=== PATIENT | male | born 1985 | race Caucasian/White ===

== ENCOUNTER 2019-09-09 08:14 | Emergency (ER) | payer SELFPAY ==
--- NOTE | ~2019-09-09 | XR_ITS ---
EXAMINATION: XR chest 1V portable 09/09/2019 08:43 INDICATION: Shortness of breath. Intermittent chest pain, nausea and abdomen pain. PROCEDURE: AP portable chest COMPARISON: 06/30/2017 FINDINGS: The lungs are clear. The cardiomediastinal silhouette is within normal limits. There are no pleural effusions. There is no pneumothorax suspected. IMPRESSION: 1: NO ACUTE CARDIOPULMONARY DISEASE. Reviewed, dictated and finalized at location A.
--- NOTE | ~2019-09-09 | CT_ITS ---
EXAMINATION: CT brain wo con DATE: 09/09/2019 10:49 INDICATION: Headache. TECHNIQUE: Computed tomography (CT) of the head was performed without intravenous contrast. The mA wa s adjusted according to patient size. Iterative reconstruction technique was employed. The dose-lengt h product was 605.33 mGy-cm. COMPARISON: None FINDINGS: There is no intracranial hemorrhage, acute infarction, or abnormal intracranial mass lesion . The ventricles are normal in size. There is mild mucosal thickening in the paranasal sinuses. The m astoid air cells are normal. The orbits are normal. IMPRESSION: 1. Normal brain. Reviewed, dictated and finalized at location A. IMPRESSION: 1. Normal brain.
--- NOTE | ~2019-09-09 | CT_ITS ---
EXAMINATION: CT abdomen pelvis w con DATE: 09/09/2019 10:48 INDICATION: Abdomen pain. TECHNIQUE: Computed tomography (CT) of the abdomen and pelvis was performed with 100 cc Omnipaque 350 intravenous contrast. The dose-length product was 407.93 mGy-cm. Automated exposure control and iter ative reconstruction technique were employed. COMPARISON: CT dated 10/15/2018 FINDINGS: Heart size is normal. No significant pleural or pericardial effusion. No significant vascular abnormality. No lymphadenopathy. The liver, spleen, pancreas, adrenal glands and kidneys are unremarkable. Colonic diverticulosis without evidence for diverticulitis. No free air or free fluid. No acute osseous abnormality. Gallbladder is present. There are changes of appendecto my.0 IMPRESSION: 1. No acute abdominal abnormality. Reviewed, dictated and finalized at location A.
--- NOTE | 2019-09-09 08:30 | ECG_ITS ---
Measurements Intervals [place] Rate: 79 P: 61 TX: 153 QRS: 49 QRSD: 95 T: 43 QT: 368 QTc: 422 Interpretive Statements SINUS RHYTHM WITH SINUS ARRHYTHMIA BASELINE ARTIFACT- I, III NORMAL ECG Electronically Signed On 09-09-2019 8:42:05 CDT by Garth Casiano D.O.
--- NOTE | 2019-09-09 08:33 | ED.GENADULT ---
HPI - General Adult General Chief complaint: Abdominal Pain Stated complaint: Multiple Complaints Time Seen by Provider: 09/09/19 08:21 Source: RN notes reviewed History of Present Illness HPI narrative: Patient presents to emergency department from home for multiple complaints. Patient states he has been having intermittent headache, numbness and tingling of the bilateral hands and feet dyspnea and abdominal pain in the left upper quadrant. Patient states that all the symptoms have been occurring over the past several weeks. Patient states that pain in the left upper abdomen is worse with eating and radiates around into his back. States that numbness and tingling and headache occur at the same time. He states he has been under increased stress and anxiety since the beginning of the pandemic. He states that his symptoms improve when he is at home and are worse when he is at work. He denies any fevers or chills vision changes chest pain vomiting diarrhea weakness of any of the extremities or any other symptoms at this time Related Data Allergies Allergy/AdvReac Type Severity Reaction Status Date / Time No Known Allergies Allergy Verified 09/09/19 08:41 Review of Systems Review of Systems: Narrative: Gen.: Denies fevers or chills Eyes: Denies eye pain or visual change ENT: Denies congestion Respiratory: Reports shortness of breath, denies cough CV: Denies chest pain or palpitations GI: Reports abdominal pain denies vomiting or diarrhea Musculoskeletal: Denies back pain or muscle pain Neuro: Denies denies weakness, reports numbness and tingling of the bilateral hands and feet Skin: Denies rash Except as documented, all other systems reviewed and negative [facility] Past Medical History Medical History (Updated 09/09/19 @ 13:18 by Panda López DO) Patient denies significant medical history Social History Social History (Updated 09/09/19 @ 08:35 by Panda López DO) Smoking packs per day: 0.25 Smoking cigarettes per day: 5.0 Gender identity (if verbalized by the patient): Male Exam Narrative: Exam Narrative: APPEARANCE: No acute distress, nontoxic, resting in bed HEENT: Normocephalic, atraumatic, OMM, TMs clear bilaterally EYES: PERRL, EOMI NECK: Supple, nontender, full range of motion without pain, no meningismus RESPIRATORY: No respiratory distress, clear to auscultation bilaterally with no rhonchi wheezing or rales CARDIOVASCULAR: RRR s murmur ABDOMINAL: Soft, nontender, nondistended MUSCULOSKELETAL: Moves all extremities. No clubbing, cyanosis or edema. NEURO: A and O ?3, following commands, speech normal, no facial droop,muscle strength 5 out of 5 bilateral upper and lower extremities SKIN:: Warm, dry. Normal Color PSYCHIATRIC: Anxious in appearance Course Course Emergency Course: Patient states he is feeling better following medication. Anxiety has improved Patient states that they are feeling much better at this time. States abdominal pain has resolved. Repeat abdominal exam shows the patient's abdomen to be soft and nontender. Discussed with patient results of workup and diagnosis. Discussed need for follow-up with primary care physician, reasons to return to the emergency department in proper use of medication. Patient understands and agrees to current treatment plan Vital Signs Vital signs: Vital Signs Temperature 97.7 F 09/09/19 08:37 Pulse Rate 105 H 09/09/19 08:37 Respiratory Rate 19 09/09/19 08:37 Blood Pressure 151/89 H 09/09/19 08:37 Pulse Oximetry 96 09/09/19 08:37 Temperature 97.7 F 09/09/19 08:37 Pulse Rate 88 09/09/19 10:10 Respiratory Rate 16 09/09/19 10:10 Blood Pressure 139/81 09/09/19 10:10 Pulse Oximetry 100 09/09/19 10:10 Medical Decision Making MDM Narrative Medical decision making narrative: Patient's abdomen is soft without significant pain or signs of surgical abdomen on serial exams. Lab and x-ray evaluations are reviewed and patient i
[2019-09-09 08:37] VITALS: BP 151/89; PULSE 105; RESP 19; TEMP 36.5; O2SAT 96
[2019-09-09 08:44] LABS: Basophils Absolute Auto 0.1 K/mm3 (0.0-0.1); Basophils Percent Auto 0.9 % (0.2-1.2); Eosinophils Absolute Auto 0.2 K/mm3 (0-0.3); Eosinophils Percent Auto 2.4 % (0-4.4); Hematocrit 48.5 % (42.0-52.0); Hemoglobin 16.3 g/dL (14.0-18.0); Immature Granulocyte Absolute 0.02 K/mm3 (0.00-0.031); Immature Granulocyte Percent A 0.3 % (0-0.5); Lymphocytes Absolute Auto 2.21 K/mm3 (0.9-3.2); Lymphocytes Percent Auto 27.8 % (18.3-44.2); Mean Corpuscular HGB Conc 33.6 g/dl (32-36); Mean Corpuscular Hemoglobin 31.4 pg (26-34); Mean Corpuscular Volume 93.4 fl (80-100); Mean Platelet Volume 11.3 fl (7.4-10.4); Monocytes Absolute Auto 0.6 K/mm3 (0.1-0.6); Monocytes Percent Auto 6.9 % (2.6-8.5); Neutrophils Absolute Auto 4.9 K/mm3 (1.3-6.7); Neutrophils Percent Auto 61.7 % (45.5-73.1); Platelet Count Result 229 k/mm3 (150-375); Red Blood Count 5.19 M/mm3 (4.6-6.20); Red Cell Distribution Width 11.8 % (11.5-14.5)
[2019-09-09 08:54] LABS: Add Urine Microscopic? YES; Appearance Urine Clear (Clear); Bacteria Urine Trace /hpf; Bilirubin Urine Negative (Negative); Blood Urine Negative (Negative); Color Urine Yellow (Yellow); Glucose Urine UA Negative (Negative); Ketones Urine Negative (Negative); Leukocyte Esterase Ur Negative LEU/UL (Negative); Mucus Urine Few /lpf; Nitrate Urine Negative (Negative); Protein Urine 1+ mg/dL (Negative); RBC Urine 0-2 /hpf (0-2); Specific Grav Ur 1.027 (1.001-1.035); Urobilinogen Urine Negative mg/dL (<2.0); WBC Urine 0-3 /hpf
[2019-09-09 08:55] LABS: INR 0.9; Prothrombin Time 11.9 Seconds (11.1-14.7)
[2019-09-09 08:56] LABS: Alanine Aminotransferase 44 U/L (4-50); Albumin Level 4.9 g/dL (3.5-5.1); Alkaline Phosphatase 93 U/L (38-126); Aspartate Amino Transferase 30 U/L (17-59); Bilirubin,Total 0.7 mg/dL (0.2-1.3); Blood Urea Nitrogen 12 mg/dL (9-20); Calcium 9.7 mg/dL (8.4-10.2); Carbon Dioxide 27 mmol/L (22-30); Chloride 103 mmol/L (98-107); Estimated CRCL calculation 101 ml/min; Estimated Glomerular Filt Rate > 60; Glucose 131 mg/dL (75-110); Lipase 70 U/L (23-300); Partial Thromboplastin Time 29.3 SECONDS (22.3-36.8); Potassium 3.4 mmol/L (3.4-5.0); Sodium 138 mmol/L (137-145)
[2019-09-09] MEDS: LORAZEPAM INJ 2 MG/ML VIAL 0.5 MG IV PUSH (08:58)
[2019-09-09] MEDS: SODIUM CHLORIDE 0.9% IV 1,000 ML 999 ML IV CONT ×2 (08:58→10:16)
[2019-09-09 09:08] LABS: Troponin I < 0.012 ng/mL (0.000-0.034)
[2019-09-09 09:32] VITALS: BP 127/82; PULSE 74; RESP 21; O2SAT 99
[2019-09-09 10:10] VITALS: BP 139/81; PULSE 88; RESP 16; O2SAT 100
[2019-09-09] MEDS: FAMOTIDINE 20 MG/2 ML VIAL IV PUSH (10:16)
[2019-09-09] MEDS: KETOROLAC 30 MG/ML VIAL (*BKC) IV PUSH (11:46)
[2019-09-09 13:36] VITALS: BP 120/78; PULSE 63; RESP 14; O2SAT 97
== END 2019-09-09 13:40 | disposition home or self-care (01) ==
PROVIDERS: Emergency Provider Emergency Medicine
DX: F41.9 Anxiety disorder, unspecified (principal); R10.9 Unspecified abdominal pain; F17.210 Nicotine dependence, cigarettes, uncomplicated
CPT/HCPCS: 36415; 70450; 71045; 74177; 80053; 81001; 83690; 84484; 85025; 85610; 85730; 93005; 96361; 96374; 96375; 99284; A9270; J1885; J2060; J7030; Q9967

== ENCOUNTER 2019-09-26 10:38 | Emergency (ER) | payer SELFPAY ==
[2019-09-26 10:39] VITALS: BP 138/89; PULSE 98; RESP 18; TEMP 37.4; O2SAT 98
[2019-09-26 11:06] LABS: Basophils Absolute Auto 0.1 K/mm3 (0.0-0.1); Basophils Percent Auto 0.6 % (0.2-1.2); Eosinophils Absolute Auto 0.2 K/mm3 (0-0.3); Eosinophils Percent Auto 1.8 % (0-4.4); Immature Granulocyte Absolute 0.02 K/mm3 (0.00-0.031); Immature Granulocyte Percent A 0.2 % (0-0.5); Lymphocytes Absolute Auto 2.84 K/mm3 (0.9-3.2); Lymphocytes Percent Auto 29.9 % (18.3-44.2); Mean Corpuscular Hemoglobin 31.8 pg (26-34); Mean Corpuscular Volume 93.6 fl (80-100); Mean Platelet Volume 11.3 fl (7.4-10.4); Monocytes Absolute Auto 0.6 K/mm3 (0.1-0.6); Monocytes Percent Auto 6.1 % (2.6-8.5); Neutrophils Absolute Auto 5.8 K/mm3 (1.3-6.7); Neutrophils Percent Auto 61.4 % (45.5-73.1); Platelet Count Result 264 k/mm3 (150-375); Red Blood Count 5.34 M/mm3 (4.6-6.20); White Blood Count 9.5 K/mm3 (4.5-10.0)
[2019-09-26 11:09] LABS: Add Urine Microscopic? NO; Appearance Urine Clear (Clear); Bilirubin Urine Negative (Negative); Blood Urine Negative (Negative); Color Urine Straw (Yellow); Glucose Urine UA Negative (Negative); Ketones Urine Negative (Negative); Leukocyte Esterase Ur Negative LEU/UL (Negative); Nitrate Urine Negative (Negative); Protein Urine Negative (Negative); Specific Grav Ur 1.006 (1.001-1.035); Urobilinogen Urine Negative mg/dL (<2.0)
--- NOTE | 2019-09-26 11:21 | ED.ABDPAIN ---
HPI - Abdominal Pain General Chief Complaint: Abdominal Pain <Yoshi Mix PA-C - Last Filed: 09/26/19 13:00> Stated Complaint: ULCER - ABD PAIN <JAMES De La Rosa Last Filed: 09/26/19 13:00> Time Seen by Provider: 09/26/19 10:58 <JAMES De La Rosa Last Filed: 09/26/19 13:00> Source: patient <JAMES De La Rosa Last Filed: 09/26/19 13:00> Mode of arrival: ambulatory <Yoshi Mix PA-C - Last Filed: 09/26/19 13:00> Limitations: no limitations <JAMES De La Rosa Last Filed: 09/26/19 13:00> History of Present Illness HPI narrative: Patient is a 33-year-old male who presents to emergency department for evaluation of abdominal discomfort in the epigastrium that radiates up into the chest is been present now for a month off and on has not taken anything for his symptoms notes that he had been taking ibuprofen and was seen in the emergency department in the recent past for rectal bleeding but did not follow-up as instructed. Patient has not taken anything for his symptoms. Denies radiation of pain. Pain is worse with p.o. intake <JAMES De La Rosa Last Filed: 09/26/19 13:00> Related Data Home Medications: Home Medications Medication Instructions Recorded Confirmed famotidine 20 mg PO 09/26/19 <Yoshi Mix PA-C - Last Filed: 09/26/19 13:00> Allergies/Adverse Reactions: Allergies Allergy/AdvReac Type Severity Reaction Status Date / Time No Known Allergies Allergy Unverified 09/26/19 10:43 <Yoshi Mix PA-C - Last Filed: 09/26/19 13:00> Review of Systems Review of Systems: All systems reviewed & are unremarkable except as noted in HPI and below <Yoshi Mix PA-C - Last Filed: 09/26/19 13:00> [facility] Social History Social History: Social History (Updated 09/26/19 @ 11:54 by Yoshi Mix PA-C) Smoking status: Current every day smoker Gender identity (if verbalized by the patient): Male <JAMES De La Rosa Last Filed: 09/26/19 13:00> Exam Narrative: Exam Narrative: GENERAL: Well-appearing, well-nourished, and in no acute distress. HEAD: Normocephalic, atraumatic. EYES: PERRLA and EOMI. ENT: Nares clear, no rhinorrhea or epistaxis. Mucous membranes moist. CHEST: Clear to auscultation. No respiratory distress. No wheezes rales or rhonchi HEART: Regular rate and rhythm. No murmur heard. Normal peripheral pulses. ABDOMEN: Soft, epigastric tenderness to palpation, nondistended EXTREMITIES: Normal range of motion. No edema. SKIN: Warm, dry, no rash. NEURO: No focal deficits. Alert and oriented x3. PSYCH: Normal mood and affect. <JAMES De La Rosa Last Filed: 09/26/19 13:00> Course Course Emergency Course: Patient in the room in no distress aware of case findings treatment plan and diagnosis agreeing to follow-up as <JAMES De La Rosa Last Filed: 09/26/19 13:00> Vital Signs Vital signs: Vital Signs Temperature 99.3 F 09/26/19 10:39 Pulse Rate 98 09/26/19 10:39 Respiratory Rate 18 09/26/19 10:39 Blood Pressure 138/89 09/26/19 10:39 Pulse Oximetry 98 09/26/19 10:39 Temperature 99.3 F 09/26/19 10:39 Pulse Rate 73 09/26/19 13:27 Respiratory Rate 18 09/26/19 13:27 Blood Pressure 113/73 09/26/19 13:27 Pulse Oximetry 100 09/26/19 13:27 <JAMES De La Rosa Last Filed: 09/26/19 13:00> Vital Signs Temperature 99.3 F 09/26/19 10:39 Pulse Rate 98 09/26/19 10:39 Respiratory Rate 18 09/26/19 10:39 Blood Pressure 138/89 09/26/19 10:39 Pulse Oximetry 98 09/26/19 10:39 Temperature 99.3 F 09/26/19 10:39 Pulse Rate 73 09/26/19 13:27 Respiratory Rate 18 09/26/19 13:27 Blood Pressure 113/73 09/26/19 13:27 Pulse Oximetry 100 09/26/19 13:27 <Katia Vides MD - Last Filed: 09/26/19 17:21> MDM - Abdominal Pain MDM Narrative Medical decision making narrative: Levi
[2019-09-26 11:29] LABS: Alanine Aminotransferase 32 U/L (4-50); Albumin Level 5.2 g/dL (3.5-5.1); Alkaline Phosphatase 84 U/L (38-126); Aspartate Amino Transferase 32 U/L (17-59); Bilirubin,Total 0.9 mg/dL (0.2-1.3); Blood Urea Nitrogen 10 mg/dL (9-20); Calcium 9.8 mg/dL (8.4-10.2); Carbon Dioxide 24 mmol/L (22-30); Chloride 103 mmol/L (98-107); Estimated CRCL calculation 111 ml/min; Estimated Glomerular Filt Rate > 60; Glucose 99 mg/dL (75-110); Lipase 138 U/L (23-300); Potassium 3.5 mmol/L (3.4-5.0); Sodium 139 mmol/L (137-145)
[2019-09-26] MEDS: SODIUM CHLORIDE 0.9% IV 1,000 ML 999 ML IV CONT (11:31)
[2019-09-26] MEDS: PANTOPRAZOLE SODIUM IV 40 MG VIAL IV PUSH (11:31)
[2019-09-26] MEDS: BELLADONNA ALK/PHENOB ELIX 10 ML, MAG HYDROX/ALUMINUM HYD/SIMETH 30 ML, LIDOCAINE HCL 2... PO (11:31)
[2019-09-26 13:27] VITALS: BP 113/73; PULSE 73; RESP 18; O2SAT 100
== END 2019-09-26 13:29 | disposition home or self-care (01) ==
PROVIDERS: Emergency Provider Emergency Medicine
DX: R10.13 Epigastric pain (principal); F17.200 Nicotine dependence, unspecified, uncomplicated
CPT/HCPCS: 36415; 80053; 81003; 83690; 85025; 96361; 96374; 99284; A9270; C9113; J7030

== ENCOUNTER 2020-01-13 18:47 | Emergency (ER) | payer SELFPAY ==
--- NOTE | ~2020-01-13 | XR_ITS ---
XR chest 2V DATE: 01/13/2020 21:03 INDICATION: Left chest pain. Shortness of breath. Dizziness. History of smoking. TECHNIQUE: PA and lateral views COMPARISON: 09/09/2019 portable AP chest FINDINGS: Normal heart size. No hilar or mediastinal enlargement. No pulmonary infiltrate or consolid ation, pleural effusion or pulmonary vascular congestion or pneumothorax. IMPRESSION: No active cardiopulmonary disease Reviewed, dictated and finalized at location A.
[2020-01-13 19:00] VITALS: BP 135/77; PULSE 83; RESP 17; TEMP 36.5; O2SAT 98
[2020-01-13 19:22] LABS: Basophils Absolute Auto 0.1 K/mm3 (0.0-0.1); Basophils Percent Auto 1.1 % (0.2-1.2); Eosinophils Absolute Auto 0.3 K/mm3 (0-0.3); Eosinophils Percent Auto 3.1 % (0-4.4); Hematocrit 47.9 % (42.0-52.0); Hemoglobin 16.7 g/dL (14.0-18.0); Immature Granulocyte Absolute 0.02 K/mm3 (0.00-0.031); Immature Granulocyte Percent A 0.2 % (0-0.5); Lymphocytes Absolute Auto 3.08 K/mm3 (0.9-3.2); Lymphocytes Percent Auto 34.8 % (18.3-44.2); Mean Corpuscular HGB Conc 34.9 g/dl (32-36); Mean Corpuscular Hemoglobin 31.5 pg (26-34); Mean Corpuscular Volume 90.4 fl (80-100); Mean Platelet Volume 11.4 fl (7.4-10.4); Monocytes Absolute Auto 0.8 K/mm3 (0.1-0.6); Monocytes Percent Auto 8.6 % (2.6-8.5); Neutrophils Absolute Auto 4.6 K/mm3 (1.3-6.7); Neutrophils Percent Auto 52.2 % (45.5-73.1); Platelet Count Result 240 k/mm3 (150-375); Red Cell Distribution Width 12.1 % (11.5-14.5); White Blood Count 8.8 K/mm3 (4.5-10.0)
[2020-01-13 19:43] LABS: Alanine Aminotransferase 33 U/L (4-50); Albumin Level 4.8 g/dL (3.5-5.1); Alkaline Phosphatase 86 U/L (38-126); Anion Gap 9 mmol/L (8-16); Aspartate Amino Transferase 28 U/L (17-59); Bilirubin,Total 0.8 mg/dL (0.2-1.3); Blood Urea Nitrogen 16 mg/dL (9-20); Calcium 9.7 mg/dL (8.4-10.2); Carbon Dioxide 27 mmol/L (22-30); Chloride 103 mmol/L (98-107); Estimated CRCL calculation 99 ml/min; Estimated Glomerular Filt Rate > 60; Glucose 112 mg/dL (75-110); Lipase 82 U/L (23-300); Potassium 3.5 mmol/L (3.4-5.0); Sodium 139 mmol/L (137-145)
--- NOTE | 2020-01-13 20:21 | ED.ABDPAIN ---
HPI - Abdominal Pain General Chief Complaint: Abdominal Pain Stated Complaint: ABD/Flank pain, GI Bleed Time Seen by Provider: 01/13/20 20:20 History of Present Illness HPI narrative: Epigastric pain radiating into the chest for a few weeks. He says that it feels like when he had an ulcer, although on further questioning he never actually had this diagnosed he just assumed that he had. one. He was on omeprazole, but stopped because he thought he had been on it to long. No vomitng, diarrhea, dark stools. Related Data Home Medications Medication Instructions Recorded Confirmed famotidine 20 mg PO 09/26/19 Allergies Allergy/AdvReac Type Severity Reaction Status Date / Time No Known Allergies Allergy Verified 01/13/20 19:04 Review of Systems Review of Systems: All systems reviewed & are unremarkable except as noted in HPI and below Constitutional: Constitutional: Denies fever(s) and Reports weakness ENT: Denies sore throat Cardiovascular: Cardiovascular: Reports chest pain Respiratory: Respiratory: Reports dyspnea Gastrointestinal: Gastrointestinal: Reports abdominal pain, Denies constipation, Denies diarrhea, Reports nausea and Denies vomiting Musculoskeletal: Musculoskeletal: Reports back pain Neurologic: Reports dizziness Psychiatric: Psychiatric: Reports anxiety PMFSH Past Medical History Medical History Patient denies significant medical history Social History Social History Smoking packs per day: 0.25 Smoking cigarettes per day: 5.0 Smoking status: Current every day smoker Gender identity (if verbalized by the patient): Male Exam Const: General: healthy appearing, no acute distress and alert Orientation/consciousness: patient oriented x3 HENMT: Head: normal to inspection Neck: Neck: normal visual inspection and no lymphadenopathy Chest: Chest palpation & inspection: no tenderness Resp: Effort & Inspection: normal respiratory effort Auscultation: clear to auscultation bilaterally, no rales, no rhonchi and no wheezes Cardio: Jugular venous distension: no JVD Rate: regular rate Rhythm: regular rhythm Heart sounds: no murmurs GI: Inspection: non-distended GI Palp: Yes Soft to palpation and Yes Tenderness to palpation present (GI) (epigastric) Skin: General skin exam: normal color Neuro: General: patient oriented x3 and moves all extremities Speech: normal speech Extrem: General: no edema Psych: Appearance: well kempt Affect: Anxious affect present Course Vital Signs Vital signs: Vital Signs Temperature 36.5 C 01/13/20 19:00 Pulse Rate 83 01/13/20 19:00 Respiratory Rate 17 01/13/20 19:00 Blood Pressure 135/77 01/13/20 19:00 Pulse Oximetry 98 01/13/20 19:00 Temperature 36.8 C 01/13/20 22:27 Pulse Rate 79 01/13/20 22:27 Respiratory Rate 16 01/13/20 22:27 Blood Pressure 124/73 01/13/20 22:27 Pulse Oximetry 99 01/13/20 22:27 MDM - Abdominal Pain MDM Narrative Medical decision making narrative: Labs reassuring. CXR negative. Medical Records Attestation: I reviewed the patient's medical records. Lab Data Attestation: I reviewed the patient's lab results. Result diagrams: 01/13/20 19:07 01/13/20 19:07 Labs: Lab Results 01/13/20 01/13/20 Range/Units 19:07 19:07 WBC 8.8 (4.5-10.0) K/mm3 RBC 5.30 (4.6-6.20) M/mm3 Hgb 16.7 (14.0-18.0) g/dL Hct 47.9 (42.0-52.0) % MCV 90.4 (80-100) fl MCH 31.5 (26-34) pg MCHC 34.9 (32-36) g/dl RDW 12.1 (11.5-14.5) % Plt Count 240 (150-375) k/mm3 MPV 11.4 H (7.4-10.4) fl Immature Gran % (Auto) 0.2 (0-0.5) % Neut % (Auto) 52.2 (45.5-73.1) % Lymph % (Auto) 34.8 (18.3-44.2) % Castro % (Auto) 8.6 H (2.6-8.5) % Eos % (Auto) 3.1 (0-4.4) % Baso % (Auto) 1.1 (0.2-1.2) % Lymph # (Auto) 3.08
[2020-01-13 20:41] VITALS: BP 127/77; PULSE 79; RESP 16; O2SAT 100
[2020-01-13] MEDS: PANTOPRAZOLE 40 MG TABLET PO (21:04)
[2020-01-13] MEDS: ACETAMINOPHEN 500 MG TABLET 1000 MG PO (21:46)
[2020-01-13 22:27] VITALS: BP 124/73; PULSE 79; RESP 16; TEMP 36.8; O2SAT 99
== END 2020-01-13 22:27 | disposition home or self-care (01) ==
PROVIDERS: Emergency Provider Emergency Medicine
DX: R10.13 Epigastric pain (principal); R07.89 Other chest pain; F17.210 Nicotine dependence, cigarettes, uncomplicated
CPT/HCPCS: 36415; 71046; 80053; 83690; 85025; 99283; A9270

== ENCOUNTER 2020-01-21 17:10 | Emergency (ER) | payer SELFPAY ==
--- NOTE | 2020-01-21 17:24 | ED.GENADULT ---
HPI - General Adult General Chief complaint: Abdominal Pain Stated complaint: Stomach/GI Time Seen by Provider: 01/21/20 17:24 Source: patient Mode of arrival: ambulatory Limitations: no limitations History of Present Illness HPI narrative: 34-year-old male patient presents to the [facility] with complaints of abdominal pain and what he thinks might be a gastric ulcer. Patient states he has never been actually diagnosed with a gastric ulcer before. Patient states he was a chronic alcoholic and was up to a pint a day of vodka and quit in August. Patient states he is also quit smoking and quit smoking marijuana. Patient has been seen several times in the emergency department with abdominal pain most recently was a week ago. Patient had a GI consult at that time and it appears that they did order an EGD and a colonoscopy. Patient states he does not currently have insurance and states that they will not schedule it without coming up with $3000. Patient states he is currently on omeprazole which did help in the beginning but feels that it is not helping anymore and has chronic pain to the left side of the abdomen. Patient rates his pain at this time 2 out of 10. Denies any vomiting. Patient does report jellylike stools with diarrhea. Patient requesting antibiotic. Related Data Home Medications Medication Instructions Recorded Confirmed omeprazole magnesium [Prilosec OTC] 40 mg PO DAILY 01/21/20 01/21/20 Allergies Allergy/AdvReac Type Severity Reaction Status Date / Time No Known Allergies Allergy Verified 01/15/20 13:28 Review of Systems Review of Systems: Narrative: CONSTITUTIONAL: Denies fever, chills, or sweats. EYES: Denies visual changes, redness, or discharge. ENT: Denies rhinorrhea, congestion, sore throat, or otalgia. CARDIOVASCULAR: Denies chest pain, palpitations, or edema. RESPIRATORY: Denies cough or dyspnea. GASTROINTESTINAL: Positive left side abdominal pain, denies nausea, vomiting, positive diarrhea. GENITOURINARY: Denies dysuria or hematuria. SKIN: Denies rash or itching. MUSCULOSKELETAL: Denies back pain, joint pain, or myalgia. NEUROLOGIC: Denies headache, numbness, or weakness. PSYCHIATRIC: Denies anxiety or depression. [facility] Past Medical History Medical History (Updated 01/21/20 @ 17:45 by KAJAL Diamond) Abdominal pain Asthma Bowel habit changes Former consumption of alcohol Hernia Patient denies significant medical history Weight loss Social History Social History Smoking packs per day: 0.25 Smoking cigarettes per day: 5.0 Smoking status: Current every day smoker Gender identity (if verbalized by the patient): Male Comments At the time of my signature I agree with nursing past medical history, surgical, social, and family history. There is no relevant family history pertinent to the presenting complaint. Exam Narrative: Exam Narrative: GENERAL: Well-appearing, well-nourished, and in no acute distress. HEAD: Normocephalic, atraumatic. EYES: PERRLA and EOMI. ENT: Nares clear, no rhinorrhea or epistaxis. Mucous membranes moist. NECK: Supple. No lymphadenopathy CHEST: Clear to auscultation. No respiratory distress. HEART: Regular rate and rhythm. No murmur heard. Normal peripheral pulses. ABDOMEN: Soft, flat, nondistended. No guarding, rebound tenderness, or rigid. No pulsatilla masses. Hyperactive bowel sounds present in all four quadrants. No organomegaly. Negative Soliman?s sign. No periumbicial tenderness. No Supra public tenderness or distension. Good femoral pulses bilaterally. No hernia noted. No scars or surface trauma. EXTREMITIES: Normal range of motion. No edema. SKIN: Warm, dry, no rash. NEURO: No focal deficits. Alert and oriented x3. Course Vital Signs Vital signs: Vital Signs Temperature 37.1 C 01/21/20 17:34 Pulse Rate 91 01/21/20 17:34 Respiratory Rate 18 01/21/20 17:34 Blood Pressure
[2020-01-21 17:34] VITALS: BP 129/82; PULSE 91; RESP 18; TEMP 37.1; O2SAT 100
--- NOTE | 2020-01-21 17:55 | PC.NURSE ---
173- Patient very upset and crying.- he was adamant about getting a receiving an antibiotic, when the provider was trying to explain to him he said, I don't want your advise, I fucking hurt. 174- Patient stated, you just don't understand, I guess I will just go home, lie down and in front of my daughter.
== END 2020-01-21 17:44 | disposition left against medical advice (07) ==
PROVIDERS: Emergency Provider Nurse Practitioner Family
DX: R10.12 Left upper quadrant pain (principal); J45.909 Unspecified asthma, uncomplicated; F17.210 Nicotine dependence, cigarettes, uncomplicated
CPT/HCPCS: 99211; G0463

== ENCOUNTER 2021-02-18 10:39 | Emergency (ER) | payer OTHER, SELFPAY ==
--- NOTE | ~2021-02-18 | XR_ITS ---
[id number] DATE: 02/18/2021 11:28 INDICATION: Right anterior rib pain for 4 days following follicular muscle TECHNIQUE: PA chest. 3 views of the right ribs. COMPARISON: 01/13/2020 2 view chest FINDINGS: Normal heart size. No hilar or mediastinal enlargement. No pulmonary infiltrate or consolid ation, pleural effusion or pulmonary vascular congestion or pneumothorax. No right rib fracture is detected. IMPRESSION: Negative examination Reviewed, dictated and finalized at Location A. Reviewed, dictated and finalized at location A. IMPRESSION: Negative examination
[2021-02-18 10:49] VITALS: BP 124/85; PULSE 64; RESP 16; TEMP 36.8; O2SAT 99
--- NOTE | 2021-02-18 11:44 | ED.GENADULT ---
HPI - General Adult General Chief complaint: Upper Respiratory Infection Stated complaint: cough/right side pain Source: patient Mode of arrival: ambulatory Limitations: no limitations History of Present Illness HPI narrative: Patient is a 35-year-old male who presents to the [facility] via POV for evaluation of a chest wall injury that occurred 2 to 3 weeks ago. Patient reports he was at work when injury occurred. He states he was pulling a hose off a tanker and a metal piece struck his right chest. He reports pain is alleviated with ibuprofen. Pain worsens with sitting up, coughing, and sneezing. Patient did not report this to human resources. Related Data Allergies Allergy/AdvReac Type Severity Reaction Status Date / Time No Known Allergies Allergy Verified 02/18/21 11:47 Review of Systems Review of Systems: pertinent negatives: fever, chills, sweats, change in appetite, poor p.o. intake, malaise, skin color changes, rash, warmth, swelling, numbness, tingling, loss of sensation, deformity, decreased range of motion, weakness, difficulty with ambulation/coordination, nausea, vomiting, lymphadenopathy, shortness of breath, chest pain, heart palpitations, and heart murmur. PMFSH Past Medical History Medical History Abdominal pain Asthma Bowel habit changes Former consumption of alcohol Hernia Patient denies significant medical history Weight loss Social History Social History Smoking packs per day: 0.25 Smoking cigarettes per day: 5.0 Smoking status: Current every day smoker Gender identity (if verbalized by the patient): Male Comments I have reviewed and agree with the patient's past medical, surgical, social, and family hx as documented by the RN. There is no relevant family history pertinent to the presenting complaint. Exam Narrative: GENERAL: Well-appearing, well-nourished, and in no acute distress. HEAD: Normocephalic, atraumatic. NECK: Supple. No Lymphadenopathy or nuchal rigidity appreciated. CHEST: No evidence of injury. Mild pain elicited with palpation to anterior right chest wall. Bilateral lung stringer are clear to auscultation. No respiratory distress. No evidence of cough or pleuritic cp upon examination. HEART: Regular rate and rhythm. No murmur, gallop, or rub heard. EXTREMITIES: No evidence of injury, decreased ROM, swelling, cyanosis, hematoma, laceration, abrasion, deformity, rash, or puncture. No evidence of pain with active/passive ROM. No evidence of dislocation, ligament laxity, effusion, or pain at rest. Pulses palpable at 2+, strength 5/5, and cap refill < 3 seconds in affected extremity. DTRs normal. Gait normal. SKIN: Warm, dry, no rash. NEURO: No focal deficits. Alert and oriented x3. Course Vital Signs Vital signs: Vital Signs Temperature 98.2 F 02/18/21 10:49 Pulse Rate 64 02/18/21 10:49 Respiratory Rate 16 02/18/21 10:49 Blood Pressure 124/85 02/18/21 10:49 Pulse Oximetry 99 02/18/21 10:49 Temperature 98.2 F 02/18/21 10:49 Pulse Rate 64 02/18/21 10:49 Respiratory Rate 16 02/18/21 10:49 Blood Pressure 124/85 02/18/21 10:49 Pulse Oximetry 99 02/18/21 10:49 Reviewed Medical Decision Making Medical Records Medical records reviewed: Yes I reviewed the external patient's medical records. Vital Signs Vital Signs: Vital Signs Temperature 98.2 F 02/18/21 10:49 Pulse Rate 64 02/18/21 10:49 Respiratory Rate 16 02/18/21 10:49 Blood Pressure 124/85 02/18/21 10:49 Pulse Oximetry 99 02/18/21 10:49 Temperature 98.2 F 02/18/21 10:49 Pulse Rate 64 02/18/21 10:49 Respiratory Rate 16 02/18/21 10:49 Blood Pressure 124/85 02/18/21 10:49 Pulse Oximetry 99 02/18/21 10:49 Imaging Data Attestation: I personally reviewed and interpreted this imaging study as follows: My impression: Neg
== END 2021-02-18 12:10 | disposition home or self-care (01) ==
PROVIDERS: Emergency Provider Nurse Practitioner Family; PCP Emergency Medicine
DX: R07.89 Other chest pain (principal); F17.210 Nicotine dependence, cigarettes, uncomplicated; J45.909 Unspecified asthma, uncomplicated
CPT/HCPCS: 71101; 99213; G0463

== ENCOUNTER 2022-12-10 14:43 | Emergency (ER) | payer BC, SELFPAY ==
[2022-12-10 14:56] VITALS: BP 140/92; PULSE 74; RESP 16; TEMP 36.6; O2SAT 100
--- NOTE | 2022-12-10 15:00 | ED.BACK ---
HPI - Back Pain/Injury General Chief Complaint: Back Pain/Injury Stated Complaint: lower back pain Time Seen by Provider: 12/10/22 15:00 Source: patient Mode of arrival: ambulatory Limitations: no limitations History of Present Illness HPI Narrative: 36-year-old male presents with complaint of right-sided low back pain since yesterday. States that he was sitting Polish style on the floor for approximately 30 minutes building and ikea dresser. States healing for to stand up and felt a sharp shooting pain into his right low back. States when he got up and put pressure on to his right leg the pain was worse. Pain does not radiate to his right lower extremity. Ambulatory with steady gait. No loss of bowel or bladder. No numbness or tingling to lower extremities. Taking Aleve without relief of pain. States just certain movements cause a sharp pain . 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 All systems reviewed and negative except as noted above. Related Data Allergies Allergy/AdvReac Type Severity Reaction Status Date / Time No Known Allergies Allergy Verified 12/10/22 15:00 Review of Systems Review of Systems: CONSTITUTIONAL: Denies fever, chills, or sweats. EYES: Denies visual changes, redness, or discharge. ENT: Denies rhinorrhea, congestion, sore throat, or otalgia. CARDIOVASCULAR: Denies chest pain, palpitations, or edema. RESPIRATORY: Denies cough or dyspnea. GASTROINTESTINAL: Denies abdominal pain, nausea, vomiting, or diarrhea. GENITOURINARY: Denies dysuria or hematuria. SKIN: Denies rash or itching. MUSCULOSKELETAL: Reports sharp pain to right side low back. Denies joint pain, or myalgia. NEUROLOGIC: Denies headache, numbness, or weakness. PSYCHIATRIC: Denies anxiety or depression. All other systems reviewed are negative, except as documented in HPI. [facility] Past Medical History Medical History Abdominal pain Asthma Bowel habit changes Former consumption of alcohol Hernia Patient denies significant medical history Weight loss Social History Social History Smoking packs per day: 0.25 Smoking cigarettes per day: 5.0 Smoking status: Current every day smoker Gender identity (if verbalized by the patient): Male Comments At time of signature, agree with nursing past medical, surgical, social and family history. There is no relevant family history pertinent to the presenting complaint. Exam Narrative: GENERAL: This is a well-nourished, well-developed patient, in no apparent distress. HEAD: normocephalic, atraumatic. EYES: PERRL. Sclera clear/white. Vision is grossly intact. EARS: External ears normal NOSE: External nose normal NECK: Neck supple, non-tender without lymphadenopathy, masses or thyromegaly. CARDIOVASCULAR: Regular rate and rhythm without murmurs, gallops, or rubs. RESPIRATORY: Clear to auscultation. Breath sounds equal bilaterally. No wheezes, rales, or rhonchi. SKIN: warm, Dry, intact with no suspicious lesions or rash, good texture and turgor. NEURO: awake, alert, and oriented to person, place and time. There were no obvious focal neurologic abnormalities. EXTREMITIES: No joint tenderness, effusion, or edema noted. BACK: no midline tenderness without deformity. tenderness to right SI joint. Positive right straight leg raise. Lower extremity strength 5/5 bilaterally. Course Course Level of Care: Express Care Visit Vital Signs Vital signs: Vital Signs Temperature 36.6 C 12/10/22 14:56 Pulse Rate 74 12/10/22 14:56 Respiratory Rate 16 12/10/22 14:56 Blood Pressure 140/92 H 12/10/22 14:56 Pulse Oximetry 100 12/10/22 14:56 Oxygen Delivery Room Air 12/10/22 14:56 Temperature 36.6 C
== END 2022-12-10 15:17 | disposition home or self-care (01) ==
PROVIDERS: Emergency Provider Nurse Practitioner Family; PCP Emergency Medicine
DX: M54.41 Lumbago with sciatica, right side (principal); F17.210 Nicotine dependence, cigarettes, uncomplicated; J45.909 Unspecified asthma, uncomplicated
CPT/HCPCS: 99213; G0463

== ENCOUNTER 2024-04-08 22:58 | Emergency (ER) | payer SELFPAY ==
--- NOTE | 2024-04-09 00:04 | PC.NURSE ---
This RN saw pt walked outside of ED. First call out for pt to be brought back was at 2350 and pt did not respond. We checked outside as well and did not see or hear from the pt. Second call out was 00:04 and still no response. Pt was presumed to left without being seen.
== END 2024-04-09 | disposition left against medical advice (07) ==
LOC: ANHED 04-09 00:38
PROVIDERS: PCP Emergency Medicine
DX: S61.001A Unspecified open wound of right thumb without damage to nail, initial encounter (principal)
CPT/HCPCS: 99199

== ENCOUNTER 2024-08-05 07:38 | Emergency (ER) | payer OTHER, SELFPAY ==
--- NOTE | ~2024-08-05 | XR_ITS ---
EXAMINATION: XR finger 5th LT min 2V DATE: 08/05/2024 08:04 INDICATION: Left hand fifth digit injury and pain. TECHNIQUE: 3 views of left hand were obtained. COMPARISON: None. FINDINGS: Alignment is normal. There is an old healed fracture of neck of fifth metacarpal. There are 2 fragments of ossification palmar to fifth proximal interphalangeal joint. Joint spaces are normal. IMPRESSION: 1. Two fragments of ossification palmar to fifth proximal interphalangeal joint, which may be avulsio n fracture(s) or chronic findings. Reviewed, dictated and finalized at location A. IMPRESSION: 1. Two fragments of ossification palmar to fifth proximal interphalangeal joint , which may be avulsion fracture(s) or chronic findings.
[2024-08-05 07:42] VITALS: BP 130/83; PULSE 74; RESP 16; O2SAT 100
--- OUTSIDE RECORDS SUMMARY | 2024-08-05 07:44 | XMS_ITS | Clinical Summary ---
Author Organization [facility] Address [address] [place] [phone] Care Team Providers Care Communications Program Manager Name Role Phone No, Physician Primary Care Provider [phone] Allergies No known active allergies Immunizations Immunization Administration Dates Next Due Tdap 01/10/2024 Social History Tobacco Use Types Packs/Day Years Used Date Smoking Tobacco: Never Assessed Personal Safety Answer Date Recorded Have you ever been in or are you currently in a harmful physical or emotional relationship or is someone making you feel afraid or unsafe? 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 Gender Identity Not on file Sexual Orientation Not on file Last Filed Vital Signs Vital Sign Reading Time Taken Comments Blood Pressure 121/87 01/10/2024 3:14 PM CDT Pulse 77 01/10/2024 3:14 PM CDT Temperature 36.7 C (98.1 F) 01/10/2024 3:14 PM CDT Respiratory Rate 19 01/10/2024 3:14 PM CDT Oxygen Saturation 99% 01/10/2024 3:14 PM CDT Inhaled Oxygen Concentration - - Weight 95.3 kg (210 lb) 01/10/2024 3:12 PM CDT Height 180.3 cm (5' 11 ) 01/10/2024 3:12 PM CDT Body Mass Index 29.29 01/10/2024 3:12 PM CDT Plan of Treatment Health Maintenance Due Date Last Done Comments Depression Screening 1987 Hepatitis C Screening 1985 Varicella Vaccines (1 of 2 - 13+ 2-dose series) 12/13/2000 Hepatitis B Screening 12/13/2005 Regular Well Visit/Exam 18-64 12/13/2005 Influenza Vaccine (#1) 2024 DTaP/Tdap/Td Vaccine (2 - Td or Tdap) 01/09/2034 01/10/2024 HPV Vaccines Aged Out No longer eligi ble based on patient's age to complete this topic Pneumococcal vaccine <65 Aged Out No longer eligible based on patient's age to complete this topic Insurance Care Teams Communications Program Manager Relationship Specialty Start Date End Date No, Physician PCP - General 01/10/24
--- OUTSIDE RECORDS SUMMARY | 2024-08-05 07:44 | XMS_ITS | Clinical Summary ---
Author Organization [facility] Address [address] [place] [address] Care Team Providers Care Coil Assembler Name Role Phone Unavailable Primary Care Provider Unavailabl e Source Comments [facility],non-owned Affiliates and Associated Physician Practices is amultiple site organization consisting of ambulatory clinics and hospital sitesin [place], [place], [place] and [place]. This disclosure is being madepursuant to the Care Everywhere program and may not contain all information available regarding this patient. Last updated 18.[employer] [facility] Allergies No known active allergies Medications * Be aware that medications may not be up to date on this document. Alwaysverify current medications with the patient. Medication Sig Dispensed Refills Start Date End Date Status cyclobenzaprine (FLEXERIL) 5 MG tablet Take 5 mg by mouth 3 times daily as needed Active PREDNISOLONE PO Active traMADol (ULTRAM) 50 MG tablet Take 1 tablet by mouth every 6 hours as needed for Pain 10 tablet 11/13/2018 Active HYDROcodone-acetamino phen (NORCO) 5-325 MG tablet Take 1 (one) tablet by mouth every 6 hours as needed for Pain 12 tablet 06/06/2020 Active Social History Tobacco Use Types Packs/Day Years Used Date Smoking Tobacco: Every Day Smokeless Tobacco: Never Alcohol Use Standard Drinks/Week Comments Yes 0 (1 standard drink = 0.6 oz pur e alcohol) 'on the weekends'- per pt Sex and Gender Information Value Date Recorded Sex Assigned at Not on file Gender Identity Male 11/13/2018 9:46 AM CDT Sexual Orientation Not on file Last Filed Vital Signs Vital Sign Reading Time Taken Comments Blood Pressure 150/90 06/06/2020 8:07 PM EARTH OBSERVATIONS CHIEF SCIENTIST Pulse 100 06/06/2020 8:07 PM EARTH OBSERVATIONS CHIEF SCIENTIST Temperature 36.7 C (98.1 F) 06/06/2020 8:07 PM EARTH OBSERVATIONS CHIEF SCIENTIST Respiratory Rate 14 06/06/2020 8:07 PM EARTH OBSERVATIONS CHIEF SCIENTIST Oxygen Saturation 95% 06/06/2020 8:07 PM EARTH OBSERVATIONS CHIEF SCIENTIST Inhaled Oxygen Concentration - - Weight 79.4 kg (175 lb) 06/06/2020 8:07 PM EARTH OBSERVATIONS CHIEF SCIENTIST Height 180.3 cm (5' 11 ) 06/06/2020 8:07 PM EARTH OBSERVATIONS CHIEF SCIENTIST Body Mass Index 24.41 06/06/2020 8:07 PM EARTH OBSERVATIONS CHIEF SCIENTIST Plan of Treatment Health Maintenance Due Date Last Done Comments HIV SCREENING 12/13/2002 HEPATITIS C SCREENING 12/09/2005 DTAP/TDAP/TD VACCINES (1 - Tdap) 12/13/2006 HEPATITIS B VACCINE (1 of 3 - 19+ 3-dose series) 12/13/2006 COVID-19 VACCINE ( - 2023-2 5 season) 2024 INFLUENZA VACCINE (#1) 2024 DEPRESSION SCREENING 05/13/2024 ZOSTER VACCINE (1 of 2) 12/13/2037 HIB VACCINE Aged Out No longer eligi ble based on patient's age to complete this topic HPV VACCINE Aged Out No longer eligi ble based on patient's age to complete this topic MENINGOCOCCAL (Group B) VACC INE SHARED DECISION-MAKING Aged Out No longer eligibl e based on patient's age to complete this topic MENINGOCOCCAL GROUPS A/C/Y/W VACCINE Aged Out No longer eligible b ased on patient's age to complete this topic PNEUMOCOCCAL VACCINE Aged Out No long er eligible based on patient's age to complete this topic Guarantor Name Account Type Relation to Patient Date of Phone Billing Address [id number] Workers Comp Employer [address] [place] [address] Yang Wiley Workers Comp Self 1985 [address] [place] [address] Yang Wiley Personal/Famil y Self 1985 [address] [place] [address] Yang Wiley Personal/Famil y Self 1985 [address] [place] [address]
--- OUTSIDE RECORDS SUMMARY | 2024-08-05 07:44 | XMS_ITS | Clinical Summary ---
Author Organization [facility] Address [facility]ly [facility] [place] [address] Care Team Providers Care Crystal Grower Name Role Phone None, Provider MD Primary Care Provider Unavaila ble Allergies No known active allergies Medications famotidine 20 MG tablet Take 1 tablet (20 mg total) by mouth 2 (two) times daily. 60 tablet 0 Active Additional Information Patient not taking.Reported on 07/13/2024 predniSONE (DELTASONE) 20 MG tabletIndicatio ns:Acute pain of right knee Take 2 tablets (40 mg total) by mouth daily for 5 days. 10 tablet 07/19/19 25 Active Problems Problem Noted Date Diagnosed Date Chronic pain of right hand 10/30/2016 Pain of right sacroiliac joint 09/11/2016 Nicotine dependence 08/31/2016 Right knee pain 08/31/2016 Resolved Problems Problem Noted Date Diagnosed Date Resolved Date Encounter for preventive health examination 08/28/2016 07/20/2024 Encounters Date Type Department Care Team Description 07/16/2024 2:50 PM UNIT REACTOR OPERATOR - 07/16/2024 11:59 PM UNIT REACTOR OPERATOR Hospital Encounter [facility] [address] [place], [place] [id number] Lety Restrepo PA Discharge Disposition: Home or Self Care (Routine Discharge) 07/16/2024 Travel 07/13/2024 3:40 PM UNIT REACTOR OPERATOR Office Visit [facility] Family [facility] Internal Medicine [facility] [address] [place] [address] Lety Restrepo PA Knee Pain (Pain to right knee-was playing basketball yesterday and noticed pain-radiates to hernandez) 07/13/2024 Travel from Last 3 Months Immunizations Name Administration Dates Next Due Td, Adsorbed, Preservative F ree, Adult Use, Lf Unspecified 08/11/2009,09/12/2008 Tdap (Generic) 01/10/2024 Family History Medical History Relation Comments Cancer Paternal Grandmother colon Relation Status Comments Paternal Grandmother Social History Tobacco Use Types Packs/Day Years Used Date Smoking Tobacco: Former Cigarettes Passive Smoke Exposure: Past Smokeless Tobacco: Never Tobacco Cessation:Counseling Given: Not Answered Alcohol Use Standard Drinks/Week Comments Not Currently 0 (1 standard drink = 0.6 oz pur e alcohol) 1/2 pint a day PHQ-2 Answer Date Recorded Patient Health Questionnaire-2 Score 0 07/13/2024 Sex and Gender Information Value Date Recorded Sex Assigned at Not on file Legal Sex Male 5:47 PM CDT Gender Identity Not on file Sexual Orientation Not on file Last Filed Vital Signs Vital Sign Reading Time Taken Comments Blood Pressure 135/89 07/13/2024 3:40 PM UNIT REACTOR OPERATOR Pulse 84 07/13/2024 3:40 PM UNIT REACTOR OPERATOR Temperature 36.4 C (97.6 F) 07/13/2024 3:40 PM UNIT REACTOR OPERATOR Respiratory Rate 20 07/13/2024 3:40 PM UNIT REACTOR OPERATOR Oxygen Saturation 98% 07/13/2024 3:40 PM UNIT REACTOR OPERATOR Inhaled Oxygen Concentration - - Weight 91.6 kg (202 lb) 07/13/2024 3:40 PM UNIT REACTOR OPERATOR Height 180.3 cm (5' 11 ) 07/13/2024 3:40 PM UNIT REACTOR OPERATOR Body Mass Index 28.17 07/13/2024 3:40 PM UNIT REACTOR OPERATOR Plan of Treatment Health Maintenance Due Date Last Done Comments Annual Physical 12/13/1990 Hepatitis C 12/13/2005 Hepatitis B Vaccines (1 of 3 - 19+ 3-dose series) 12/13/2006 COVID-19 Vaccine (2023-2 5 season) 2024 Influenza Adult (#1) 2024 DTaP, Tdap and Td Vaccines ( 2 - Td or Tdap) 01/09/2034 01/10/2024, 08/11/2009, 09/12/2008 PHQ-2 (Physician [place]) Completed 07/13/2024 HPV Vaccines Aged Out No longer eligi ble based on patient's age to complete this topic Meningococcal B Vaccine Aged Out No l onger eligible based on patient's age to complete this topic Meningococcal Vaccine Aged Out No delaney karissa eligible based on patient's age to complete this topic Pneumococcal Vaccine: Pediatrics (0 to 5 Years) and At-Risk Patients (6 to 64 Years) Aged Out No longer eligible b ased on patient's age to complete this topic RSV Immunizations Under 20 Months Aged Out No longer eligible b ased on patient's age to complete this topic Procedures Procedure Name Priority Date/Time Associated Diagnosis Comments XR KNEE RT 3V Routine 07/16/2024 3:06 PM UNIT REACTOR OPERATOR Acute pain of right knee from Last 3 Months Results * XR KNEE RT 3V (07/16/2024 3:06 PM UNIT REACTOR OPERATOR) Anatomical Region Laterality Modality Knee Radiographic Chio ging 07/16/2024 4:41 PM UNIT REACTOR OPERATOR Impressions 07/16/2024 4:45 PM UNIT REACTOR OPERATOR IMPRESSION: 1. No acute osseous abnormality is identified. Internal derangement of the right knee is not excluded. A follow-up MRI could be considered for further evaluation, as clinical directed. 2. Trace a small left knee joint effusion. 3. Mild to moderate soft tissue swelling of the anterior right knee joint. Referred By: Interpreted By: Adelfo Martinez MD, 07/16/2024 4:41 PM Narrative 07/16/2024 4:45 PM UNIT REACTOR OPERATOR [facility] [address] [facility] [place] [address] PROCEDURE: XR KNEE RT 3V HISTORY: Knee pain. COMPARISON: None. TECHNIQUE: AP, rotated and lateral views of the right knee were obtained. FINDINGS: There is no acute fracture or osseous malalignment identified. The patellofemoral, medial and lateral compartment joint spaces are maintained on this study. Trace a small left knee joint effusion. Mild to moderate anterior right knee joint soft tissue swelling. Procedure Note Adelfo Martinez MD - 07/16/2024 [facility] [address] [place] [address] PROCEDURE: XR KNEE RT 3V HISTORY: Knee pain. COMPARISON: None. TECHNIQUE: AP, rotated and lateral views of the right knee wereobtained. FINDINGS: There is no acute fracture or osseous malalignment identified. Thepatellofemoral, medial and lateral compartment joint spaces are maintainedon this study. Trace a small left knee joint effusion. Mild to moderateanterior right knee joint soft tissue swelling. IMPRESSION: 1. No acute osseous abnormality is identified. Internal derangement ofthe right knee is not excluded. A follow-up MRI could be considered forfurther evaluation, as clinical directed. 2. Trace a small left knee joint effusion. 3. Mild to moderate soft tissue swelling of the anterior right kneejoint. Referred By: Interpreted By: Adelfo Martinez MD, 07/16/2024 4:41 PM [facility] Final Result from Last 3 Months Insurance [facility] [place] [id number] [facility] Care Teams Crystal Grower Relationship Specialty Start Date End Date None, Provider, PCP - General UNKNOWN PHYSICIAN SPECIALTY 04/09/24
--- OUTSIDE RECORDS SUMMARY | 2024-08-05 07:44 | XMS_ITS | Referral Summary ---
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
[2024-08-05 07:45] VITALS: TEMP 36.7
--- OUTSIDE RECORDS SUMMARY | 2024-08-05 08:17 | XMS_ITS | Clinical Summary ---
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
--- OUTSIDE RECORDS SUMMARY | 2024-08-05 08:17 | XMS_ITS | Clinical Summary ---
Author Organization [facility] Address [facility] [place] [address] Care Team Providers Care Safety Advisor Name Role Phone None, Provider MD Primary [...] Department Care Team Description 07/16/2024 2:50 PM SUPERVISOR RUBBER COVERING - 07/16/2024 11:59 PM SUPERVISOR RUBBER COVERING Hospital Encounter [facility] [address] [place], [place] [id number] Lety Restrepo PA Discharge Disposition: Home or Self Care (Routine Discharge) 07/16/2024 Travel 07/13/2024 3:40 PM SUPERVISOR RUBBER COVERING Office Visit [facility] Family & Internal Medicine [facility] [address] [place] [address] Lety Restrepo PA Knee Pain [...] Comments Blood Pressure 135/89 07/13/2024 3:40 PM SUPERVISOR RUBBER COVERING Pulse 84 07/13/2024 3:40 PM SUPERVISOR RUBBER COVERING Temperature 36.4 C (97.6 F) 07/13/2024 3:40 PM SUPERVISOR RUBBER COVERING Respiratory Rate 20 07/13/2024 3:40 PM SUPERVISOR RUBBER COVERING Oxygen Saturation 98% 07/13/2024 3:40 PM SUPERVISOR RUBBER COVERING Inhaled Oxygen Concentration - - Weight 91.6 kg (202 lb) 07/13/2024 3:40 PM SUPERVISOR RUBBER COVERING Height 180.3 cm (5' 11 ) 07/13/2024 3:40 PM SUPERVISOR RUBBER COVERING Body Mass Index 28.17 07/13/2024 3:40 PM SUPERVISOR RUBBER COVERING Plan of Treatment Health Maintenance Due Date Last Done Comments Annual Physical 12/13/1990 Hepatitis C 12/13/2005 Hepatitis B Vaccines (1 of 3 - 19+ 3-dose series) 12/13/2006 COVID-19 Vaccine (2023-2 5 season) 2024 Influenza Adult (#1) 2024 DTaP, Tdap and Td Vaccines ( 2 - Td or Tdap) 01/09/2034 01/10/2024, 08/11/2009, 09/12/2008 PHQ-2 (Physician [place]) Completed 07/13/2024 HPV Vaccines Aged Out No [...] KNEE RT 3V Routine 07/16/2024 3:06 PM SUPERVISOR RUBBER COVERING Acute pain of right knee from Last 3 Months Results * XR KNEE RT 3V (07/16/2024 3:06 PM SUPERVISOR RUBBER COVERING) Anatomical Region Laterality Modality Knee Radiographic Chio ging 07/16/2024 4:41 PM SUPERVISOR RUBBER COVERING Impressions 07/16/2024 4:45 PM SUPERVISOR RUBBER COVERING IMPRESSION: 1. No acute osseous abnormality is [...] 07/16/2024 4:41 PM Narrative 07/16/2024 4:45 PM SUPERVISOR RUBBER COVERING [facility] [address] [facility] [place] [address] PROCEDURE: XR KNEE RT 3V HISTORY: Knee [...] Procedure Note Adelfo Martinez MD - 07/16/2024 [facility] [address] [place] [address] PROCEDURE: XR KNEE RT 3V HISTORY: Knee [...] Final Result from Last 3 Months Insurance [facility] [place] [id number] [facility] [place] [address] Care Teams Safety Advisor Relationship Specialty Start Date End Date None, Provider, PCP - General UNKNOWN PHYSICIAN SPECIALTY 04/09/24
--- OUTSIDE RECORDS SUMMARY | 2024-08-05 08:17 | XMS_ITS | Referral Summary ---
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
--- OUTSIDE RECORDS SUMMARY | 2024-08-05 08:17 | XMS_ITS | Clinical Summary ---
Author Organization [facility] Address [address] [place] [address] Care Team Providers Care Die Stamping Press Operator Name Role Phone Unavailable Primary Care Provider Unavailabl e Source Comments [facility],non-owned Affiliates and Associated Physician Practices is amultiple site organization consisting of ambulatory clinics and hospital sitesin [place], [place], [place] and [place]. This disclosure is being madepursuant to the Care Everywhere program and may not contain all information available regarding this patient. Last updated 18.[employer] [facility] Allergies No known active allergies Medications * [...] Comments Blood Pressure 150/90 06/06/2020 8:07 PM PAINT MIXER HAND Pulse 100 06/06/2020 8:07 PM PAINT MIXER HAND Temperature 36.7 C (98.1 F) 06/06/2020 8:07 PM PAINT MIXER HAND Respiratory Rate 14 06/06/2020 8:07 PM PAINT MIXER HAND Oxygen Saturation 95% 06/06/2020 8:07 PM PAINT MIXER HAND Inhaled Oxygen Concentration - - Weight 79.4 kg (175 lb) 06/06/2020 8:07 PM PAINT MIXER HAND Height 180.3 cm (5' 11 ) 06/06/2020 8:07 PM PAINT MIXER HAND Body Mass Index 24.41 06/06/2020 8:07 PM PAINT MIXER HAND Plan of Treatment Health Maintenance Due Date [...] to Patient Date of Phone Billing Address [id number] Workers Comp Employer [address] [place] [address] Yang Wiley Workers Comp Self 1985 [address] [place] [address] Yang Wiley Personal/Famil y Self 1985 [address] [place] [address] Yang Wiley Personal/Famil y Self 1985 [address] [place] [address]
--- NOTE | 2024-08-05 08:32 | ED.UPPEXIN ---
HPI - Extremity Injury (Upper) General Chief Complaint: Extremity Injury, Upper Stated Complaint: L 5TH DIGIT INJURY Time Seen by Provider: 08/05/24 07:53 History of Present Illness HPI narrative: 38-year-old male presenting with left pinky injury after jamming his finger against struck today. Reports some pain and limited mobility at the ulnar aspect proximal phalangeal joint. Endorses a hyper extension injury of the pain keep when he jammed it. No other trauma no other injuries. Full sensation. Able to make a closed fist, some mild swelling. Related Data Allergies Allergy/AdvReac Type Severity Reaction Status Date / Time No Known Allergies Allergy Verified 08/05/24 07:39 Review of Systems Review of Systems: As reviewed above in HPI [facility] Past Medical History Medical History Hernia Asthma Former consumption of alcohol Weight loss Bowel habit changes Abdominal pain Patient denies significant medical history Social History Social History Smoking packs per day: 0.25 Smoking cigarettes per day: 5.0 Smoking status: Current every day smoker Gender identity (if verbalized by the patient): Male Exam Narrative: GENERAL: [Well-appearing, well-nourished, and in no acute distress.] HEAD: [Normocephalic, atraumatic.] EYES: [PERRLA and EOMI.] ENT: Nares clear, no rhinorrhea or epistaxis. Mucous membranes moist. NECK: Supple. CHEST: [Clear to auscultation. No respiratory distress.] HEART: [Regular rate and rhythm]. No murmur heard. [Normal peripheral pulses.] ABDOMEN: [Soft, nondistended], [nontender], [No rigidity or guarding] EXTREMITIES: Some tenderness around the base and proximal interphalangeal joint of the left 5th finger. No overlying skin changes, redness or open injury. Able to make a closed fist and extend, flex at the PIP D IP and MCP joint of each digit. SKIN: Warm, dry, no rash. NEURO: [No focal deficits]. Alert and oriented [x3.] PSYCH: [Normal mood and affect.] Course Vital Signs Vital signs: Vital Signs Pulse Rate 74 08/05/24 07:42 Respiratory Rate 16 08/05/24 07:42 Blood Pressure 130/83 08/05/24 07:42 Pulse Oximetry 100 08/05/24 07:42 Oxygen Delivery Room Air 08/05/24 07:42 Temperature 36.7 C 08/05/24 07:45 Pulse Rate 74 08/05/24 07:42 Respiratory Rate 16 08/05/24 07:42 Blood Pressure 130/83 08/05/24 07:42 Pulse Oximetry 100 08/05/24 07:42 Oxygen Delivery Room Air 08/05/24 07:42 MDM - Extremity Injury (Upper) MDM Narrative Medical decision making narrative: 38-year-old male presenting with injury to his left pinky. He hyper extended his left pinky finger but has good range of motion. Minor tenderness but no significant swelling. Normal vital signs. Good capillary in the digit. No paresthesias or anesthesias. X-rays were obtained. The show potential small avulsion fractures of the palmar aspect 5th proximal interphalangeal joint in the area that he is tender which consists with his clinical exam. We had emmett-taped his 4th and 5th digit together for mobility and pain control and provided him Ultram. Patient will be referred to a hand specialist and given pain medications as needed. Patient is safe for discharge home at this time. Medical Records Attestation: I reviewed the patient's medical records. Imaging Data Attestation: I personally reviewed and interpreted this imaging study as follows: My impression: Impressions Finger X-Ray 08/05/24 08:05 IMPRESSION: 1. Two fragments of ossification palmar to fifth proximal interphalangeal joint, which may be avulsion fracture(s) or chronic findings. Discharge Plan Discharge Clinical Impression: Closed fracture of middle phalanx of left little finger Patient Disposition: Home, Self-Care Condition: Stable Instructions: Antibiotic Form, Finger Fracture (ED) Additional Instructions: You have 2 tiny fragments at the palmar aspect of your left pinky where your pain is which likely are small avulsion fractures. Given your good range of motion and mechanics of the hand you can be safely discharged with hand specialty follow-up. We will send you home with pain medications. Maintain the emmett taping and we have also provided a finger splint if you would prefer this for comfort. Patient Language: Mongolian Prescriptions: New tramadol 25 mg tablet 25 mg PO Q6H PRN (Reason: pain) Qty: 14 0RF No Action methocarbamol 500 mg tablet 500 mg PO Q6H PRN (Reason: muscle pain/spasm) Qty: 30 0RF prednisone 20 mg tablet See Rx Instructions .ROUTE .COMPLEX Qty: 12 0RF Rx Instructions: Take 3 tablets today, then 2 tablets daily for 3 days then 1 tablet daily for 3 days. ibuprofen 600 mg tablet 600 mg PO Q6H PRN (Reason: pain) Qty: 30 0RF Follow-up/Referrals: Kenyatta Chang MD [Physician] - 1 Week (Avulsion fracture PIP left pinky) UNKNOWN,DOCTOR [Primary Care Provider] - Time of Disposition: 08:39
[2024-08-05] MEDS: traMADol HCL (*CRX) 50 MG TABLET PO (08:38)
[2024-08-05 08:50] VITALS: BP 102/84; PULSE 75; RESP 16; TEMP 37.1; O2SAT 99
== END 2024-08-05 08:52 | disposition home or self-care (01) ==
PROVIDERS: Emergency Provider Student in an Organized Health Care Education/Training Program
DX: S62.627A Displaced fracture of middle phalanx of left little finger, initial encounter for closed fracture (principal); J45.909 Unspecified asthma, uncomplicated; F17.210 Nicotine dependence, cigarettes, uncomplicated; W22.8XXA Striking against or struck by other objects, initial encounter
CPT/HCPCS: 29130; 73140; 99284; A9270

== ENCOUNTER 2024-08-09 08:49 | Emergency (ER) | payer OTHER, SELFPAY ==
--- NOTE | 2024-08-09 08:53 | ED_ITS ---
HPI - Extremity Injury (Upper) General Chief Complaint: Extremity Injury, Upper Stated Complaint: Left Had Finger Pain Time Seen by Provider: 08/09/24 08:58 Source: patient, RN notes reviewed and old records reviewed Mode of arrival: ambulatory Limitations: no limitations History of Present Illness HPI narrative: 38-year-old presents to the [facility] with left 5th finger pain. Was evaluated on the 08/05, 4 days ago in the emergency room diagnosed with a finger fracture at the PIP. patient presents not emmett-taped or wearing the splint. Patient states that he went to try to finish a chicken coop, was moving a piece of plywood when it on his finger. Small abrasions noted. Occurred just prior to arrival. Reports he had a tetanus shot approximately 1 year ago. Related Data Home Medications ?Medication ?Instructions ?Recorded ?Confirmed ?Last Taken ?Type tramadol 50 mg tablet mg 08/09/24 Unknown History Allergies Allergy/AdvReac Type Severity Reaction Status Date / Time No Known Allergies Allergy Verified 08/09/24 08:50 Review of Systems Review of Systems: All systems reviewed & are unremarkable except as noted in HPI and below Constitutional: Constitutional: Reports no additional constitutional complaints ENT: Reports system reviewed and no additional complaints, except as documented Cardiovascular: Cardiovascular: Reports no additional cardiovascular complaints, Denies chest pain and Denies dyspnea Respiratory: Respiratory: Reports no additional respiratory complaints, Denies chest congestion, Denies cough and Denies dyspnea Musculoskeletal: Musculoskeletal: Reports as per HPI Integumentary/Breasts: Skin/Breast: Reports as per HPI PMFSH Past Medical History Medical History Hernia Asthma Former consumption of alcohol Weight loss Bowel habit changes Abdominal pain Patient denies significant medical history Social History Social History Smoking packs per day: 0.25 Smoking cigarettes per day: 5.0 Smoking status: Current every day smoker Gender identity (if verbalized by the patient): Male Comments At the time of my signature, I reviewed and agree with the nursing past medical, surgical, social, and family history. There is no relevant family history pertinent to the patient complaint. Exam Const: General: cooperative, healthy appearing, comfortable, no acute distress, well developed, alert and well nourished Nutritional Appearance: well nourished Orientation/consciousness: patient oriented x3 Limitations: no limitations HENMT: Head: normal to inspection Eyes: General: appearance normal, both eyes and all related structures Alignment and Position: alignment normal Neck: Neck: normal visual inspection, full ROM, no lymphadenopathy and no meningeal signs Chest: Chest palpation & inspection: normal inspection of the chest Resp: Effort & Inspection: normal respiratory effort and able to speak in complete sentences Cardio: Rate: regular rate Skin: General skin exam: normal color and no rashes or lesions noted Other: small Abrasion noted to the PIP and middle phalanx 5th finger left hand. Neuro: General: patient oriented x3, gait normal, moves all extremities and no meningeal signs Cognition (Neuro): normal cognition Speech: normal speech Gait exam (Neuro): Normal gait present Extrem: General: normal to inspection, full ROM, capillary refill normal and normal gait Left upper extremity: hand normal capillary refill, neuromotor exam normal Details: wrist extension normal and thumb opposition normal, neurosensory exam normal, tenderness of the 5th digit at the middle phalanx and at the PIP joint, vascular exam radial pulse present and normal capillary refill and abrasion; no unusual warmth, no swelling, no lacerations, no ecchymosis, no crepitus, no foreign bodies and no puncture wound Psych: Appearance: grossly normal and well kempt Mental Status: mental status grossly normal Speech and movement: Normal speech and movement present and Clear speech present Affect: normal affect Attitude: cooperative Course Course Emergency Course: patient presents with small abrasions. Reports that he is up-to-date tetanus shot. Area cleaned with saline Betadine. New splint applied, discussed in detail the importance of following up to make sure it is healing correctly. due to underlying fracture will cover with antibiotic, encourage patient to follow-up with specialist primary care provider. Level of Care: Express Care Visit Vital Signs Vital signs: Vital Signs Temperature 98.2 F 08/09/24 08:59 Pulse Rate 76 08/09/24 08:59 Respiratory Rate 19 08/09/24 08:59 Blood Pressure 117/79 08/09/24 08:59 Pulse Oximetry 100 08/09/24 08:59 Oxygen Delivery Room Air 08/09/24 08:59 Temperature 98.2 F 08/09/24 08:59 Pulse Rate 76 08/09/24 08:59 Respiratory Rate 19 08/09/24 08:59 Blood Pressure 117/79 08/09/24 08:59 Pulse Oximetry 100 08/09/24 08:59 Oxygen Delivery Room Air 08/09/24 08:59 Reviewed MDM - Extremity Injury (Upper) MDM Narrative Medical decision making narrative: patient presents with injury that occurred 45 prior to arrival. Patient with underlying fracture from 4 days ago. Area cleaned with Betadine saline, new splint applied, encourage patient to wear the splint most of the time until he sees Dr. Esposito. can remove to clean abrasion patient appropriate for outpatient treatment with follow-up this week Discharge instructions reviewed with patient, as well as provided in writing per nursing staff. The instructions also include specific and strict return/GO TO THE ER as well as f/u information. All questions have been answered, and the patient deny any further questions with discharge and discharge plan. Some parts of this dictation were generated by voice recognition software and may contain typographical and/or grammatical inaccuracies. Differential Diagnosis Differential diagnosis: Likely other ( Finger abrasion, finger laceration) Critical Care Time Critical Care Time Critical Care Time: No Discharge Plan Discharge Clinical Impression: History of fracture of phalanx of finger Abrasion of finger Qualifiers: Encounter type: initial encounter Qualified Code(s): S60.419A - Abrasion of unspecified finger, initial encounter Patient Disposition: Home, Self-Care Condition: Stable Instructions: Antibiotic Form, Finger Fracture (ED), Abrasion (ED) Additional Instructions: wash wound twice daily, pat dry. Wear the splint until cleared by hand specialist. follow-up with primary care provider Patient Language: Bengali Prescriptions: New amoxicillin-pot clavulanate 875-125 mg tablet 1 tablet PO Q12H Qty: 20 0RF ibuprofen 600 mg tablet 600 mg PO TID PRN (Reason: fever or pain) Qty: 30 0RF No Action tramadol 50 mg tablet Follow-up/Referrals: Kenyatta Chang MD [Physician] - PHYSICIAN,[employer]PERATOR [Primary Care Provider] - Stand Alone Forms: Work/School Release IP Time of Disposition: 09:10
[2024-08-09 08:59] VITALS: BP 117/79; PULSE 76; RESP 19; TEMP 36.8; O2SAT 100
== END 2024-08-09 09:15 | disposition home or self-care (01) ==
PROVIDERS: Emergency Provider Nurse Practitioner
DX: S62.617A Displaced fracture of proximal phalanx of left little finger, initial encounter for closed fracture (principal); X58.XXXA Exposure to other specified factors, initial encounter; S60.417A Abrasion of left little finger, initial encounter; W20.8XXA Other cause of strike by thrown, projected or falling object, initial encounter; J45.909 Unspecified asthma, uncomplicated; F17.210 Nicotine dependence, cigarettes, uncomplicated
CPT/HCPCS: 99213; G0463